=== PATIENT | male | born 1960 | race African-American/Black ===

== ENCOUNTER 2019-08-13 23:32 | Emergency (ER) | payer OTHER, MEDICAID ==
[~2019-08-13] VITALS: Ht 175.3 cm; Wt 99.8 kg
[2019-08-13 23:37] VITALS: BP 170/120
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
[2019-08-13 23:57] LABS: BASOPHILS % (AUTO) 1.4 % (0.0-2.0); EOSINOPHILS % (AUTO) 1.4 % (0.0-3.0); HEMATOCRIT 42.8 % (42.0-52.0); HEMOGLOBIN 14.3 G/DL (14.2-18.0); LYMPHOCYTES % (AUTO) 14.2 % (20.0-45.0); MEAN CORPUSCULAR VOLUME 94 FL (80-99); MONOCYTES % (AUTO) 6.3 % (1.0-10.0); NEUTROPHILS % (AUTO) 76.7 % (45.0-75.0); PLATELET COUNT 209 K/UL (150-450); RED BLOOD COUNT 4.56 M/UL (4.70-6.10); RED CELL DISTRIBUTION WIDTH 11.2 % (11.6-14.8)
[2019-08-14 00:03] LABS: ANION GAP 4 mmol/L (5-15); BLOOD UREA NITROGEN 22 mg/dL (7-18); CALCIUM 8.9 MG/DL (8.5-10.1); CARBON DIOXIDE 30 MMOL/L (21-32); CHLORIDE 108 MMOL/L (98-107); CREATININE 1.3 MG/DL (0.55-1.30); POTASSIUM 3.8 MMOL/L (3.5-5.1); SODIUM 142 MMOL/L (136-145)
[2019-08-14 00:29] VITALS: BP 165/117
--- NOTE | 2019-08-14 00:29 | NUR ---
ER DISCHARGE NOTE: Patient is cleared to be discharged per ERMD, and is medically cleared to be booked. pt is aox4, on room air, with stable vital signs. pt was given dc instructions, pt was able to verbalize understanding, pt id band removed without complications. pt is able to ambulate with steady gait. pt took all belongings and left with [employer].
--- NOTE | 2019-08-14 14:53 | Diagnostic Imaging Report ---
Template 1 view chest Indication: Reason For Exam: CP Technique: One view of the chest Comparison: none Findings: Neck jewelry in place; per technologist a heterogeneous removed. No gross acute infiltrates, effusions, congestion. Normal heart size Impression: No definite acute process
--- NOTE | 2019-08-15 17:12 | Cardiology Report ---
APPROVED REPORT EKG Measurement Heart [id number] Poor data quality, interpretation may be adversely affected Normal sinus rhythm Left posterior fascicular block Nonspecific T wave abnormality Abnormal ECG
== END 2019-08-14 00:29 ==
LOC: EDBD 23:32 → EMR 23:49
DX: R07.9 Chest pain, unspecified (principal); F15.10 Other stimulant abuse, uncomplicated; F12.10 Cannabis abuse, uncomplicated
CPT/HCPCS: 36415; 71045; 80048; 84484; 85025; 93005; 99283